=== PATIENT | female | born 1985 | race Native Hawaiian/Other Pacific Islander ===

== ENCOUNTER 2021-04-17 10:49 | Observation (INO) | payer SELFPAY ==
[~2021-04-17 10:49] MED LIST: BUPIVACAINE/PF (0.5%) 5 MG/1 ML 30 ML VIAL INFILTRATI ONE; LIDOCAINE (1%) 10 MG/1 ML VIAL 20 ML MDV INFILTRATI ONE
--- NOTE | 2021-04-17 11:17 | Emergency Department Report ---
ED Abdominal Pain HPI - General Chief Complaint: Abdominal Pain Stated Complaint: REF CT SCAN PUI?: No Time Seen by Provider: 04/17/21 11:14 Source: patient Mode of arrival: Ambulatory Limitations: No Limitations - History of Present Illness Initial Comments: 35 yo comes to ER from her PCP office (Dr Pollard- at the clinic). She presented there with abd pain. She states it started as epigastric but then was in RLQ. He sent her here to ro appendicitis. She has had the pain for 1 day. Loose stools. No fever or pain LMP 02/24 Pt is on no home meds Complaint: abdominal pain -: Gradual, days(s) Location: RLQ, epigastric Radiation: none Severity: mild Quality: cramping Consistency: intermittent Improves With: nothing Worsens With: nothing Associated Symptoms: denies other symptoms - Related Data LMP (females 10-50): 3 weeks Allergies Allergy/AdvReac Type Severity Reaction Status Date / Time No Known Allergies Allergy Unverified 09/28/13 16:05 ED Review of Systems ROS: Stated complaint: REF CT SCAN Other details as noted in HPI Comment: All other systems reviewed and negative ED Past Medical Hx - Past Medical History Previous Medical History?: Yes Hx GERD: Yes Hx Headaches / Migraines: Yes Additional medical history: adrenal insufficiency - Surgical History Past Surgical History?: Yes Additional Surgical History: x 2 - Family History Family history: no significant - Social History Smoking Status: Never Smoker Substance Use Type: None ED Physical Exam - General Limitations: No Limitations General appearance: alert, in no apparent distress - Head Head exam: Present: atraumatic, normocephalic - Eye Eye exam: Present: normal appearance - ENT ENT exam: Present: mucous membranes moist - Neck Neck exam: Present: normal inspection - Respiratory Respiratory exam: Present: normal lung sounds bilaterally. Absent: respiratory distress - Cardiovascular Cardiovascular Exam: Present: regular rate, normal rhythm. Absent: systolic murmur, diastolic murmur, rubs, gallop - GI/Abdominal GI/Abdominal exam: Present: soft, normal bowel sounds. Absent: distended, tenderness, guarding, rebound, rigid, diminished bowel sounds, hyperactive bowel sounds, hypoactive bowel sounds, organomegaly, mass, bruit, pulsatile mass, hernia - Rectal Rectal exam: Present: deferred - Extremities Exam Extremities exam: Present: normal inspection - Back Exam Back exam: Present: normal inspection - Neurological Exam Neurological exam: Present: alert, oriented X3 - Psychiatric Psychiatric exam: Present: normal affect, normal mood - Skin Skin exam: Present: warm, dry, intact, normal color. Absent: rash ED Course Vital Signs 04/17/21 11:08 Temperature 98.2 F Pulse Rate 92 H Respiratory 16 Rate Blood Pressure 123/82 [Left] O2 Sat by Pulse 98 Oximetry - Reevaluation(s) Reevaluation #1: 04/17/21 14:04 surgery paged pt updated npo Reevaluation #2: 04/17/21 14:21 Dr Faria updated Charge Nurse aware- pt to go to room 20. Curtis aware and will place on monitor Reevaluation #3: 04/17/21 14:50 Dr Barerra has seen pt Dr Faria updated on pt preop status ED Medical Decision Making - Lab Data Result diagrams: 04/17/21 11:27 04/17/21 11:27 - Radiology Data Radiology results: report reviewed, image reviewed see report - Medical Decision Making Lab Results 04/17/21 04/17/21 04/17/21 Range/Units 11:27 11:27 11:27 WBC 8.7 (4.5-11.0) K/mm3 RBC 4.12 (3.65-5.03) M/mm3 Hgb 12.4 (10.1-14.3) gm/dl Hct 36.8 (30.3-42.9) % MCV 89 (79-97) fl MCH 30 (28-32) pg MCHC 34 (30-34) % RDW 14.1 (13.2-15.2) % Plt Count 274 (140-440) K/mm3 Lymph % (Auto) 31.9 (13.4-35.0) % [place] % (Auto) 4.6 (0.0-7.3) % Eos % (Auto) 0.3 (0.0-4.3) % Baso % (Auto) 0.3 (0.0-1.8) % Lymph # (Auto) 2.8 (1.2-5.4) K/mm3 [place] # (Auto) 0.4 (0.0-0.8) K/mm3 Eos # (Auto) 0.0 (0.0-0.4) K/mm3 Baso # (Auto) 0.0 (0.0-0.1) K/mm3 Seg Neutrophils % 62.9 (40.0-70.0) % Seg Neutrophils # 5.5 (1.8-7.7) K/mm3 Sodium 139 (137-145) mmol/L Potassium 3.9 (3.6-5.0) mmol/L Chloride 104.3 (98-107) mmol/L Carbon Dioxide 21 L (22-30) mmol/L Anion Gap 18 mmol/L BUN 10 (7-17) mg/dL Creatinine 0.5 L (0.6-1.2) mg/dL Estimated GFR > 60 ml/min BUN/Creatinine Ratio 20 % Glucose 82 (65-100) mg/dL Calcium 9.4 (8.4-10.2) mg/dL Total Bilirubin 0.60 (0.1-1.2) mg/dL Direct Bilirubin < 0.2 (0-0.2) mg/dL Indirect Bilirubin 0.4 mg/dL AST 12 (5-40) units/L ALT 10 (7-56) units/L Alkaline Phosphatase 87 (35-129) units/L Total Protein 7.6 (6.3-8.2) g/dL Albumin 4.2 (3.9-5) g/dL Albumin/Globulin Ratio 1.2 % Lipase 17 (13-60) units/L HCG, Qual Negative (Negative) Urine Color (Yellow) Urine Turbidity (Clear) Urine pH (5.0-7.0) Ur Specific [place] (1.003-1.030) Urine Protein (Negative) mg/dL Urine Glucose (UA) (Negative) mg/dL Urine Ketones (Negative) mg/dL Urine Blood (Negative) Urine Nitrite (Negative) Urine Bilirubin (Negative) Urine Urobilinogen (<2.0) mg/dL Ur Leukocyte Esterase (Negative) Urine WBC (Auto) (0.0-6.0) /HPF Urine RBC (Auto) (0.0-6.0) /HPF U Epithel Cells (Auto) (0-13.0) /HPF 04/17/21 Range/Units Unknown WBC (4.5-11.0) K/mm3 RBC (3.65-5.03) M/mm3 Hgb (10.1-14.3) gm/dl Hct (30.3-42.9) % MCV (79-97) fl MCH (28-32) pg MCHC (30-34) % RDW (13.2-15.2) % Plt Count (140-440) K/mm3 Lymph % (Auto) (13.4-35.0) % [place] % (Auto) (0.0-7.3) % Eos % (Auto) (0.0-4.3) % Baso % (Auto) (0.0-1.8) % Lymph # (Auto) (1.2-5.4) K/mm3 [place] # (Auto) (0.0-0.8) K/mm3 Eos # (Auto) (0.0-0.4) K/mm3 Baso # (Auto) (0.0-0.1) K/mm3 Seg Neutrophils % (40.0-70.0) % Seg Neutrophils # (1.8-7.7) K/mm3 Sodium (137-145) mmol/L Potassium (3.6-5.0) mmol/L Chloride (98-107) mmol/L Carbon Dioxide (22-30) mmol/L Anion Gap mmol/L BUN (7-17) mg/dL Creatinine (0.6-1.2) mg/dL Estimated GFR ml/min BUN/Creatinine Ratio % Glucose (65-100) mg/dL Calcium (8.4-10.2) mg/dL Total Bilirubin (0.1-1.2) mg/dL Direct Bilirubin (0-0.2) mg/dL Indirect Bilirubin mg/dL AST (5-40) units/L ALT (7-56) units/L Alkaline Phosphatase (35-129) units/L Total Protein (6.3-8.2) g/dL Albumin (3.9-5) g/dL Albumin/Globulin Ratio % Lipase (13-60) units/L HCG, Qual (Negative) Urine Color Yellow (Yellow) Urine Turbidity Slightly-cloudy (Clear) Urine pH 6.0 (5.0-7.0) Ur Specific [place] 1.017 (1.003-1.030) Urine Protein <15 mg/dl (Negative) mg/dL Urine Glucose (UA) Neg (Negative) mg/dL Urine Ketones Tr (Negative) mg/dL Urine Blood Lg (Negative) Urine Nitrite Neg (Negative) Urine Bilirubin Neg (Negative) Urine Urobilinogen < 2.0 (<2.0) mg/dL Ur Leukocyte Esterase Neg (Negative) Urine WBC (Auto) < 1.0 (0.0-6.0) /HPF Urine RBC (Auto) < 1.0 (0.0-6.0) /HPF U Epithel Cells (Auto) < 1.0 (0-13.0) /HPF Vital Signs 04/17/21 11:08 Temperature 98.2 F Pulse Rate 92 H Respiratory 16 Rate Blood Pressure 123/82 [Left] O2 Sat by Pulse 98 Oximetry labs noted ua noted CT noted 1400 [address] Barrera consulted NPO for OR tonight Pt updated WBC normal no fever on reexam endorsing RLQ pain additional orders placed including antibiotics. To MAIN ER room 10 - pending operative plan - Differential Diagnosis RO K STONE/UTI/APPENDICITIS/CHOLEYSYS Critical care attestation.: If time is entered above; I have spent that time in minutes in the direct care of this critically ill patient, excluding procedure time. ED Disposition Clinical Impression: Abdominal pain Qualifiers: Abdominal location: generalized Qualified Code(s): R10.84 - Generalized abdominal pain Appendicitis Qualifiers: Appendicitis type: acute appendicitis Disposition: 02 [facility]ORT [facility]M [facility] Is pt being admited?: Yes Does the pt Need Aspirin: No Condition: Stable Instructions: Abdominal Pain (ED) Referrals: LO HARRIS MD [Staff Physician] - 3-5 Days IVONNE BARRERA MD [Staff Physician] - 3-5 Days Time of Disposition: 13:54
[2021-04-17 12:07] LABS: Basophils % (Auto) 0.3 % (0.0-1.8); Eosinophils % (Auto) 0.3 % (0.0-4.3); Hematocrit 36.8 % (30.3-42.9); Hemoglobin 12.4 gm/dl (10.1-14.3); Lymphocytes # (Auto) 2.8 K/mm3 (1.2-5.4); Lymphocytes % (Auto) 31.9 % (13.4-35.0); Mean Corpuscular HGB Conc 34 % (30-34); Mean Corpuscular Volume 89 fl (79-97); Monocytes # (Auto) 0.4 K/mm3 (0.0-0.8); Monocytes % (Auto) 4.6 % (0.0-7.3); Platelet Count 274 K/mm3 (140-440); Red Blood Count 4.12 M/mm3 (3.65-5.03); Red Cell Distribution Width 14.1 % (13.2-15.2)
[2021-04-17 12:10] LABS: Bilirubin,Urine NEG (Negative); Blood,Urine LG (Negative); Color,Urine Yellow (Yellow); Protein,Urine <15 mg/dL mg/dL (Negative); Urobilinogen,Urine < 2.0 mg/dL (<2.0)
[2021-04-17 12:14] LABS: RBC,Urine < 1.0 /HPF (0.0-6.0); WBC,Urine < 1.0 /HPF (0.0-6.0)
[2021-04-17 12:33] LABS: Alanine Aminotransferase 10 units/L (7-56); Albumin 4.2 g/dL (3.9-5); Blood Urea Nitrogen 10 mg/dL (7-17); Calcium 9.4 mg/dL (8.4-10.2); Hemolysis Index 0
[2021-04-17 12:41] LABS: BUN/Creatinine Ratio 20
[2021-04-17 12:42] LABS: Bilirubin,Direct < 0.2 mg/dL (0-0.2)
--- NOTE | 2021-04-17 13:54 | Cat Scan Report ---
CT OF THE ABDOMEN AND PELVIS WITHOUT CONTRAST INDICATION / CLINICAL INFORMATION: Abdominal pain. TECHNIQUE: All CT scans at this location are performed using CT dose reduction for ALARA by means of automated exposure control. COMPARISON: None available. FINDINGS: ABDOMEN: The liver, spleen, gallbladder, bile ducts, pancreas, adrenal glands and kidneys demonstrate no significant abnormality. I see no evidence of bowel obstruction or free air. No adenopathy is pre sent. The lung bases are unremarkable. PELVIS: The appendix is dilated and thick-walled, measuring approximately 1 cm transverse. There is m inimal increased density of the periappendiceal fat. I do not identify a calcified fecalith. There is no evidence of abscess. A small amount of free fluid in the cul-de-sac is nonspecific. The uterus and adnexal regions are unr emarkable. There is no evidence of diverticulitis. I do not identify a hernia. No acute osseous abnor mality is seen. IMPRESSION: Acute, uncomplicated appendicitis. Signer Name: Ant Garay MD Signed: 04/17/2021 1:50 PM Workstation Name: [employer]
[2021-04-17] MEDS ORDERED: CEFEPIME/NS 2 GM/100 ML 2 GM/100 ML BAG IV ONE (14:12)
[2021-04-17] MEDS ORDERED: SODIUM CHLORIDE 0.9% 1000 ML 1,000 ML IV ONE (14:28)
[2021-04-17] MEDS ORDERED: MORPHINE 4 MG/1 ML INJ IV ONE (14:48)
[2021-04-17] MEDS ORDERED: ONDANSETRON 4 MG/2 ML INJ IV ONE (14:48)
[2021-04-17] MEDS ORDERED: SCOPOLAMINE TRANSDERMAL PATCH 72 HR TD ONE (15:00)
--- NOTE | 2021-04-17 15:26 | Anesthesia Consultation ---
<GINNY MCNAMARA - Last Filed: 04/17/21 15:26> Anesthesia Consult and Med Hx Date of service: 04/17/21 - Airway Anesthetic Teeth Evaluation: Good ROM Head & Neck: Adequate Mental/Hyoid Distance: Adequate Mallampati Class: Class II Intubation Access Assessment: Probably Good - Pre-Operative Health Status ASA Pre-Surgery Classification: ASA1 Proposed Anesthetic Plan: General - Additional Comments Anesthesia Medical History Comments: acute appendicitis <EVA VALDEZ - Last Filed: 04/17/21 17:11> Anesthesia Consult and Med Hx - Pre-Operative Health Status ASA Pre-Surgery Classification: ASA2 - Pulmonary Hx Smoking: No - Cardiovascular System Hx Hypertension: No - Central Nervous System Hx Neuromuscular Disorder: No (hx pituitary tumor stable since 2013; no meds) - Endocrine Hx Renal Disease: No Hx Liver Disease: No Hx Insulin Dependent Diabetes: No - Other Systems Hx Obesity: No
--- NOTE | 2021-04-17 15:27 | Anesthesia Day of Surgery ---
Anesthesia Day of Surgery - Day of Surgery Patient Examined: Yes Patient H&P Reviewed: Yes Patient is NPO: Yes
--- NOTE | 2021-04-17 15:27 | Consultation ---
History of Present Illness Consult date: 04/17/21 Reason for consult: abdominal pain - History of present illness History of present illness: General surgery called for evaluation of a 35-year-old female who presented from an outpatient clinic for abdominal pain. She says the pain started a day and was more in the epigastric area and is now radiated to the right lower quadrant. No aggravating or alleviating factors. Patient had a CT scan that showed inflammation of the appendix consistent with acute appendicitis. Pt says that she believes she had uncomplicated appendicitis several years ago that was treated with abx. Past History Past Medical History: other (headaches, adrenal insufficiency) Past Surgical History: Social history: no significant social history Medications and Allergies Allergies Allergy/AdvReac Type Severity Reaction Status Date / Time No Known Allergies Allergy Unverified 09/28/13 16:05 Active Meds: Active Medications Sodium Chloride (Nacl 0.9% 1000 Ml) 1,000 mls @ 75 mls/hr IV ONCE ONE Stop: 04/18/21 03:47 Last Admin: 04/17/21 14:57 Dose: 75 mls/hr Review of Systems All systems: negative - Constitutional no fever, no chills - Gastrointestinal abdominal pain, diarrhea, no nausea, no vomiting Exam Vital Signs Temp Pulse Resp BP Pulse Ox 98.2 F 92 H 16 123/82 98 04/17/21 11:08 04/17/21 11:08 04/17/21 11:08 04/17/21 11:08 04/17/21 11:08 - General physical appearance Positive: well developed, no distress, moderate pain - Respiratory Positive: normal expansion, normal respiratory effort - Cardiovascular Heart Sounds: Present: S1 & S2 - Extremities Extremities: no ischemia - Abdomen Abdomen: Present: soft, other (tender to palpation RLQ). Absent: guarding, rigid Results - Labs 04/17/21 11:27 04/17/21 11:27 Abnormal lab results 04/17/21 Range/Units 11:27 Carbon Dioxide 21 L (22-30) mmol/L Creatinine 0.5 L (0.6-1.2) mg/dL Diabetes panel 04/17/21 Range/Units 11:27 Sodium 139 (137-145) mmol/L Potassium 3.9 (3.6-5.0) mmol/L Chloride 104.3 (98-107) mmol/L Carbon Dioxide 21 L (22-30) mmol/L BUN 10 (7-17) mg/dL Creatinine 0.5 L (0.6-1.2) mg/dL Glucose 82 (65-100) mg/dL Calcium 9.4 (8.4-10.2) mg/dL AST 12 (5-40) units/L ALT 10 (7-56) units/L Alkaline Phosphatase 87 (35-129) units/L Total Protein 7.6 (6.3-8.2) g/dL Albumin 4.2 (3.9-5) g/dL Calcium panel 04/17/21 Range/Units 11:27 Calcium 9.4 (8.4-10.2) mg/dL Albumin 4.2 (3.9-5) g/dL Pituitary panel 04/17/21 Range/Units 11:27 Sodium 139 (137-145) mmol/L Potassium 3.9 (3.6-5.0) mmol/L Chloride 104.3 (98-107) mmol/L Carbon Dioxide 21 L (22-30) mmol/L BUN 10 (7-17) mg/dL Creatinine 0.5 L (0.6-1.2) mg/dL Glucose 82 (65-100) mg/dL Calcium 9.4 (8.4-10.2) mg/dL Adrenal panel 04/17/21 Range/Units 11:27 Sodium 139 (137-145) mmol/L Potassium 3.9 (3.6-5.0) mmol/L Chloride 104.3 (98-107) mmol/L Carbon Dioxide 21 L (22-30) mmol/L BUN 10 (7-17) mg/dL Creatinine 0.5 L (0.6-1.2) mg/dL Glucose 82 (65-100) mg/dL Calcium 9.4 (8.4-10.2) mg/dL Total Bilirubin 0.60 (0.1-1.2) mg/dL AST 12 (5-40) units/L ALT 10 (7-56) units/L Alkaline Phosphatase 87 (35-129) units/L Total Protein 7.6 (6.3-8.2) g/dL Albumin 4.2 (3.9-5) g/dL - Imaging CT scan - abdomen: report reviewed, image reviewed CT scan - pelvis: report reviewed (inflammed appendix with no free air, fluid, or signs of abscess or perforation), image reviewed Assessment and Plan 35 year old female with acute appendicitis. Afebrile and stable. Pathology, prognosis and treatment options discussed with patient who expressed understanding. Pt signed informed consent for lap appendectomy. Pt scheduled for today.
[2021-04-17] MEDS ORDERED: LIDOCAINE MPF (2%) 20 MG/1 ML VIAL 5 ML ONE (15:30)
[2021-04-17] MEDS ORDERED: propofoL 200 MG/20 ML VIAL IV ONE (15:30)
[2021-04-17] MEDS ORDERED: ROCURONIUM 50 MG/5 ML INJ IV ONE (15:30)
[2021-04-17] MEDS ORDERED: HYDROmorphone 1 MG/1 ML INJ ONE (15:30)
[2021-04-17] MEDS ORDERED: SUCCINYLCHOLINE CHLORIDE 200 MG/10 ML INJ MDV ONE (15:31)
[2021-04-17] MEDS ORDERED: LIDOCAINE (1%) 10 MG/1 ML VIAL 20 ML MDV ONE (16:03)
[2021-04-17] MEDS ORDERED: BUPIVACAINE/PF (0.5%) 5 MG/1 ML 30 ML VIAL INFILTRATI ONE ×2 (16:03→17:41)
[2021-04-17] MEDS ORDERED: MIDAZOLAM 2 MG/2 ML INJ ONE (16:42)
[2021-04-17] MEDS ORDERED: ONDANSETRON 4 MG/2 ML INJ IV PRN ×2 (17:11→18:07)
[2021-04-17] MEDS ORDERED: LIDOCAINE (1%) 10 MG/1 ML VIAL 20 ML MDV INFILTRATI ONE (17:41)
[2021-04-17] MEDS ORDERED: NEOSTIGMINE 10MG/10 ML INJ MDV ONE (17:45)
[2021-04-17] MEDS ORDERED: ONDANSETRON 4 MG/2 ML INJ ONE (17:45)
[2021-04-17] MEDS ORDERED: GLYCOPYRROLATE 0.4 MG/2 ML INJ ONE (17:45)
[2021-04-17] MEDS ORDERED: LACTATED RINGERS 1,000 ML ONE (17:50)
[2021-04-17] MEDS ORDERED: HYDROmorphone 1 MG/1 ML INJ IV PRN (18:07)
[2021-04-17] MEDS ORDERED: ALBUTEROL 2.5 MG/3 ML NEBU IH PRN (18:07)
[2021-04-17] MEDS ORDERED: oxyCODONE /ACETAMINOPHEN 5-325MG TAB PO PRN ×2 (18:07→19:45)
[2021-04-17] MEDS ORDERED: ACETAMINOPHEN 325 MG TAB PO PRN (18:07)
[2021-04-17] MEDS: HYDROmorphone 1 MG/1 ML INJ IV PRN ×2 (18:10→18:20)
--- NOTE | 2021-04-17 18:14 | Operative Report ---
Operative Report Operative Report: Date of Service: 04/17/2021 Primary Surgeon: Linda Barrera MD Procedure: Laparoscopic Appendectomy Anesthesia: GETA Pre-Operative Diagnosis: acute appendicitis Post-Operative Diagnosis: Same Indications for Procedure: 35-year-old female with a 1 day history of worsening abdominal pain. CT scan showed acute appendicitis. Patient signed informed consent expressed understanding risk and benefits. Description of Procedure(s): The patient was brought to the operating room and underwent general anesthesia after lower extremity SCD were placed. A anderson catheter was inserted under sterile conditions and the left arm was tucked gently at their side. The abdomen was prepped and draped in the standard fashion. IV antibiotics were given and a time out was performed. Using a veress needle via a stab incision in the umbilicus, the abdomen was insuflated to a pressure of 15mmHg. Using optivew technique, a 5mm trocar was placed just superior and to the left of the umbilicus. There was no gross injury noted to any intra-abdominal structures. After which working trocars were placed under direct visualization. A 12 mm trocar was placed in left mid abdomen, and a 5 mm trocar was inserted in the suprapubic area. The patient was placed in slight Trendelenburg position and tilted towards her left side. The cecum was identified and mobilized, as well as the terminal ileum. There was no gross purulent fluid. The mesoappendix was transected with the Harmonic scalpel. The appendix was then taken at its base with a white load on a laparoscopic stapler. The staple line was inspected and found to be hemostatically sound and secure after 2 clips were placed along the staple line. There was a generalized oozing at the patient had an all incisions including the base of the appendix. Powdered Surgicel was placed this area. The appendix was placed in Endo Catch bag. It was then retrieved via the 12 mm trocar. The fascia was then closed using a O-vicryl and a suture passer device. Trocars removed under direct visualization. The insufflation was then terminated. The skin incisions were closed using 4-0 Monocryl sutures. All the wounds dressed with dermabond. The patient tolerated the procedure well, was extubated and taken to the recovery room in satisfactory condition. 1% lidocaine was used at all incisions for local anesthetic. Specimen: appendix Complications: none immediate EBl: minimal Findings: Generalized inflammation of the appendix and the tip to the base. No signs of perforation.
[2021-04-17] MEDS ORDERED: SODIUM CHLORIDE 0.9% 1000 ML 1,000 ML IV SCH (18:15)
[2021-04-17] MEDS ORDERED: diphenhydrAMINE 50 MG/ML VIAL ONE (18:21)
--- NOTE | 2021-04-17 18:22 | History and Physical Report ---
History of Present Illness Chief complaint: My stomach is hurting History of present illness: 35 YO Female with Migraine BERRIOS, GERD presents to ED for evaluation. Patient reports "my stomach hurts". Patient states that she has experienced abdominal pain for the past day with persistent symptoms over the same timeframe. Patient was seen and evaluated by her primary care physician and was instructed to seek further care at [facility]. Patient transported to [facility] via private vehicle for further care and evaluation of the aforementioned symptoms. The patient was seen and evaluated in the emergency department. All lab and imaging studies reviewed. Patient with CT scan of the abdomen and pelvis which revealed acute appendicitis. Surgical team consulted in ED. Patient taken to the operating room for surgical intervention. Patient denies fever, chills, chest pain, palpitation, productive cough, skin rash or recent contact, known exposure to COVID-19. No prior admission for review. No medication listed at time of admission for reconciliation. Past History Past Medical History: other (headaches, adrenal insufficiency) Past Surgical History: Social history: , lives with family. denies: smoking, alcohol abuse Family history: no significant family history, other (Reviewed) Medications and Allergies Allergies Allergy/AdvReac Type Severity Reaction Status Date / Time No Known Allergies Allergy Unverified 09/28/13 16:05 Active Meds: Active Medications Acetaminophen (Acetaminophen 325 Mg Tab) 650 mg PO Q4H PRN PRN Reason: Pain MILD(1-3)/Fever >100.5/BERRIOS Albuterol (Albuterol 2.5 Mg/3 Ml Nebu) 2.5 mg IH Q4HRT PRN PRN Reason: Shortness Of Breath Hydromorphone HCl (Hydromorphone 1 Mg/1 Ml Inj) 0.5 mg IV Q10MIN PRN PRN Reason: Pain , Severe (7-10) Hydromorphone HCl (Hydromorphone 1 Mg/1 Ml Inj) 0.5 mg IV Q23H PRN PRN Reason: Pain , Severe (7-10) Sodium Chloride (Nacl 0.9% 1000 Ml) 1,000 mls @ 75 mls/hr IV ONCE ONE Stop: 04/18/21 03:47 Last Admin: 04/17/21 14:57 Dose: 75 mls/hr Sodium Chloride (Nacl 0.9% 1000 Ml) 1,000 mls @ 100 mls/hr IV DIRECT PATRICIA Ondansetron HCl (Ondansetron 4 Mg/2 Ml Inj) 4 mg IV ONCE PRN PRN Reason: Nausea And Vomiting Ondansetron HCl (Ondansetron 4 Mg/2 Ml Inj) 4 mg IV Q8H PRN PRN Reason: Nausea And Vomiting Oxycodone/Acetaminophen (Oxycodone /Acetaminophen 5-325mg Tab) 1 tab PO Q16H PRN PRN Reason: Pain, Moderate (4-6) Sodium Chloride (Sodium Chloride 0.9% 10 Ml Flush Syringe) 10 ml IV BID PATRICIA Sodium Chloride (Sodium Chloride 0.9% 10 Ml Flush Syringe) 10 ml IV PRN PRN PRN Reason: LINE FLUSH Review of Systems Constitutional: no weight loss, no weight gain, no chills Ears, nose, mouth and throat: no ear pain, no tinnitis, no nose pain, no nasal congestion Breasts: no change in shape, no swelling Cardiovascular: no chest pain, no orthopnea, no palpitations, no edema Respiratory: no cough, no cough with sputum, no shortness of breath Gastrointestinal: abdominal pain, no nausea, no diarrhea, no change in bowel habits Genitourinary Female: no pelvic pain, no flank pain, no dysuria, no urinary frequency, no urgency Rectal: no pain, no incontinence, no bleeding Musculoskeletal: no neck stiffness, no shooting arm pain, no low back pain, no shooting leg pain Integumentary: no rash, no pruritis, no sores, no wounds, no jaundice Neurological: no head injury, no weakness, no tingling, no seizures, no syncope Psychiatric: no anxiety, no hypersomnia, no change in appetite, no suicidal ideation Endocrine: no cold intolerance, no heat intolerance, no polydipsia, no polyuria Hematologic/Lymphatic: no easy bruising, no easy bleeding Allergic/Immunologic: no urticaria, no wheezing Exam - Constitutional Vitals: Temp Pulse Resp BP Pulse Ox 98.2 F 92 H 16 123/82 98 04/17/21 11:08 04/17/21 11:08 04/17/21 11:08 04/17/21 11:08 04/17/21 11:08 General appearance: Present: mild distress - EENT Eyes: Present: PERRL ENT: hearing intact, clear oral mucosa - Neck Neck: Present: supple, normal ROM - Respiratory Respiratory effort: normal Respiratory: bilateral: CTA - Cardiovascular Heart Sounds: Present: S1 & S2. Absent: rub, click - Extremities Extremities: pulses symmetrical, No edema Peripheral Pulses: within normal limits - Abdominal General gastrointestinal: Present: soft, tender, non-distended, normal bowel sounds Localized gastrointestinal: tender: RLQ Female genitourinary: Present: normal - Integumentary Integumentary: Present: clear, warm, dry - Musculoskeletal Musculoskeletal: gait normal, strength equal bilaterally - Psychiatric Psychiatric: appropriate mood/affect, intact judgment & insight - Neurologic Neurologic: CNII-XII intact, moves all extremities Results - Labs CBC & Chem 7: 04/17/21 11:27 04/17/21 11:27 Labs: Abnormal lab results 04/17/21 Range/Units 11:27 Carbon Dioxide 21 L (22-30) mmol/L Creatinine 0.5 L (0.6-1.2) mg/dL Assessment and Plan - Patient Problems (1) Acute appendicitis Current Visit: Yes Status: Acute Plan to address problem: CT scan abdomen pelvis, bowel rest, IV fluid resuscitation therapy, surgical team consulted in ED. Patient pending surgical intervention Serial abdominal e xam. Pain control. (2) Abdominal pain Current Visit: Yes Status: Acute Qualifiers: Abdominal location: generalized Qualified Code(s): R10.84 - Generalized abdominal pain Plan to address problem: Serial abdominal exam, pain control. Surgery team consulted. Patient pending surgical intervention. (3) DVT prophylaxis Current Visit: Yes Status: Acute Plan to address problem: SCD to bilateral lower extremities while in bed, early ambulation. (4) Advance care planning Current Visit: Yes Status: Acute Plan to address problem: Disease education done, care plan discussed, diagnoses discussed, prognosis discussed, patient knowledges understanding and agreement with care plan, +30 minutes.
[2021-04-17] MEDS ORDERED: diphenhydrAMINE 50 MG/ML VIAL IV PRN (18:23)
--- NOTE | 2021-04-17 18:45 | Post Anesthesia Evaluation ---
- Post Anesthesia Evaluation Patient Participated: Yes Airway Patent: Yes Stable Respiratory Function: Yes Nausea/Vomiting: No Temp > 96.8F: Yes Pain Manageable: Yes Adequeate Hydration: Yes Anesthesia Complications: No
[2021-04-17] MEDS ORDERED: LACTATED RINGERS 1,000 ML IV SCH (19:45)
[2021-04-17] MEDS ORDERED: MORPHINE 2 MG/1 ML INJ IV PRN (19:45)
[2021-04-17] MEDS: KETOROLAC 30 MG/1 ML INJ IV SCH (22:06)
[2021-04-18] MEDS: KETOROLAC 30 MG/1 ML INJ IV SCH ×3 (01:50→11:29)
[2021-04-18 05:02] VITALS: BP 114/65
[2021-04-18 05:11] LABS: Basophils % (Auto) 0.4 % (0.0-1.8); Eosinophils % (Auto) 0.1 % (0.0-4.3); Hematocrit 36.6 % (30.3-42.9); Hemoglobin 12.3 gm/dl (10.1-14.3); Lymphocytes # (Auto) 1.1 K/mm3 (1.2-5.4); Lymphocytes % (Auto) 10.2 % (13.4-35.0); Mean Corpuscular HGB Conc 34 % (30-34); Mean Corpuscular Volume 91 fl (79-97); Monocytes # (Auto) 0.2 K/mm3 (0.0-0.8); Monocytes % (Auto) 2.4 % (0.0-7.3); Platelet Count 277 K/mm3 (140-440); Red Blood Count 4.05 M/mm3 (3.65-5.03); Red Cell Distribution Width 14.1 % (13.2-15.2)
[2021-04-18 05:29] LABS: Alanine Aminotransferase 10 units/L (7-56); Albumin 3.9 g/dL (3.9-5); Blood Urea Nitrogen 10 mg/dL (7-17); Calcium 8.7 mg/dL (8.4-10.2); Hemolysis Index 31
[2021-04-18 05:33] LABS: BUN/Creatinine Ratio 20
--- NOTE | 2021-04-18 09:52 | Progress Note ---
Assessment and Plan Postop day #1 status post laparoscopic appendectomy for acute appendicitis. Patient is afebrile and stable. Laboratory values are within settable limits. From a general surgery perspective patient okay to discharge today. Patient can advance diet activity as tolerated. Patient to call my office to make an appointment in 2 weeks.[phone] Subjective Date of service: 04/18/21 Narrative: No acute events overnight. Patient says she feels much better compared to prior to surgery. She has expected pain on the left side where there is a transmuscular stitch. She tolerated clear liquid without difficulty and is ambulating well. Objective Vital Signs - 12hr 04/17/21 04/17/21 04/17/21 21:57 22:00 22:06 Temperature 98.6 F Pulse Rate 104 H Respiratory 18 18 Rate Blood Pressure 99/62 O2 Sat by Pulse 98 100 Oximetry 04/17/21 04/17/21 04/17/21 22:07 22:36 22:37 Temperature Pulse Rate Respiratory 18 18 18 Rate Blood Pressure O2 Sat by Pulse Oximetry 04/18/21 04/18/21 04/18/21 01:50 02:20 05:01 Temperature 98.1 F Pulse Rate 98 H Respiratory 18 18 18 Rate Blood Pressure 114/65 O2 Sat by Pulse 97 Oximetry 04/18/21 06:17 Temperature Pulse Rate Respiratory 18 Rate Blood Pressure O2 Sat by Pulse Oximetry - General physical appearance well developed, no distress, no pain - Eyes PERRL, normal occular movement - Respiratory normal expansion, normal respiratory effort - Abdomen soft, other (Incisions clean dry and intact, appropriate tender to palpation) - Labs 04/18/21 04:49 04/18/21 04:49 Diabetes panel 04/17/21 04/18/21 Range/Units 11:27 04:49 Sodium 139 133 L (137-145) mmol/L Potassium 3.9 4.0 (3.6-5.0) mmol/L Chloride 104.3 102.9 (98-107) mmol/L Carbon Dioxide 21 L 18 L (22-30) mmol/L BUN 10 10 (7-17) mg/dL Creatinine 0.5 L 0.5 L (0.6-1.2) mg/dL Glucose 82 120 H (65-100) mg/dL Calcium 9.4 8.7 (8.4-10.2) mg/dL AST 12 16 (5-40) units/L ALT 10 10 (7-56) units/L Alkaline Phosphatase 87 86 (35-129) units/L Total Protein 7.6 7.3 (6.3-8.2) g/dL Albumin 4.2 3.9 (3.9-5) g/dL Calcium panel 04/17/21 04/18/21 Range/Units 11:27 04:49 Calcium 9.4 8.7 (8.4-10.2) mg/dL Albumin 4.2 3.9 (3.9-5) g/dL Pituitary panel 04/17/21 04/18/21 Range/Units 11:27 04:49 Sodium 139 133 L (137-145) mmol/L Potassium 3.9 4.0 (3.6-5.0) mmol/L Chloride 104.3 102.9 (98-107) mmol/L Carbon Dioxide 21 L 18 L (22-30) mmol/L BUN 10 10 (7-17) mg/dL Creatinine 0.5 L 0.5 L (0.6-1.2) mg/dL Glucose 82 120 H (65-100) mg/dL Calcium 9.4 8.7 (8.4-10.2) mg/dL Adrenal panel 04/17/21 04/18/21 Range/Units 11:27 04:49 Sodium 139 133 L (137-145) mmol/L Potassium 3.9 4.0 (3.6-5.0) mmol/L Chloride 104.3 102.9 (98-107) mmol/L Carbon Dioxide 21 L 18 L (22-30) mmol/L BUN 10 10 (7-17) mg/dL Creatinine 0.5 L 0.5 L (0.6-1.2) mg/dL Glucose 82 120 H (65-100) mg/dL Calcium 9.4 8.7 (8.4-10.2) mg/dL Total Bilirubin 0.60 0.60 (0.1-1.2) mg/dL AST 12 16 (5-40) units/L ALT 10 10 (7-56) units/L Alkaline Phosphatase 87 86 (35-129) units/L Total Protein 7.6 7.3 (6.3-8.2) g/dL Albumin 4.2 3.9 (3.9-5) g/dL
--- NOTE | 2021-04-18 10:17 | Discharge Summary ---
Providers - Providers Date of Admission: 04/17/21 18:07 Date of discharge: 04/18/21 Attending physician: CATHERINE SILVER Primary care physician: NURSING ATTENDANT Hospitalization Reason for admission: abd pain Condition: Stable Hospital course: 35-year-old female who presented from an outpatient clinic for abdominal pain. The pain started the day of admission and was located in the epigastric area and radiated to the right lower quadrant. No aggravating or alleviating factors. Patient had a CT scan that showed inflammation of the appendix consistent with acute appendicitis. Pt stated that she believes she had uncomplicated appendicitis several years ago that was treated with abx. Patient was admitted and started on IV antibiotics and seen by general surgeon consultation. The patient underwent laparoscopic appendectomy without complications. Postoperatively, patient was noted be afebrile with laboratory values in normal limits. Patient tolerated diet well. General surgery felt the patient could discharge home and advance diet and active as tolerated. Follow-up with general surgery in 2 weeks. Dedicated discharge time 35 minutes. Disposition: 01 HOME / SELF CARE / HOMELESS Final Discharge Diagnosis (Prints w/discharge instructions): Appendicitis, abdominal pain Core Measure Documentation - Palliative Care Palliative Care/ Comfort Measures: Not Applicable - Core Measures Any of the following diagnoses?: none Exam - Constitutional Vitals: Temp Pulse Resp BP Pulse Ox 98.1 F 98 H 97 H 114/65 98 04/18/21 05:01 04/18/21 05:01 04/18/21 10:00 04/18/21 05:01 04/18/21 10:00 General appearance: Present: no acute distress, well-nourished - EENT Eyes: Present: PERRL ENT: hearing intact, clear oral mucosa - Neck Neck: Present: supple, normal ROM - Respiratory Respiratory effort: normal Respiratory: bilateral: CTA - Cardiovascular Heart Sounds: Present: S1 & S2. Absent: rub, click - Extremities Extremities: pulses symmetrical, No edema Peripheral Pulses: within normal limits - Abdominal General gastrointestinal: Present: soft, non-tender, non-distended, normal bowel sounds Female genitourinary: Present: normal - Integumentary Integumentary: Present: clear, warm, dry - Musculoskeletal Musculoskeletal: gait normal, strength equal bilaterally - Psychiatric Psychiatric: appropriate mood/affect, intact judgment & insight - Neurologic Neurologic: CNII-XII intact, moves all extremities Plan Activity: advance as tolerated Weight Bearing Status: Weight Bear as Tolerated Diet: regular Wound: per your surgeon's advice Follow up with: LO HARRIS MD [Staff Physician] - 3-5 Days IVONNE BERMUDEZ MD [Staff Physician] - 3-5 Days Prescriptions: oxyCODONE /ACETAMINOPHEN [Percocet 5/325 mg] 1 tab PO Q4HR PRN #8 tablet PRN Reason: Pain, Moderate (4-6)
== END 2021-04-18 12:07 | disposition home or self-care (01) ==
LOC: ED 10:49 → 3A 18:07
PROVIDERS: ADMIT Internal Medicine; ATTEND Hospitalist
DX: K35.80 Unspecified acute appendicitis (principal); R10.84 Generalized abdominal pain; E27.40 Unspecified adrenocortical insufficiency; R51.9 Headache, unspecified; Z98.891 History of uterine scar from previous surgery; Z79.899 Other long term (current) drug therapy; Z98.890 Other specified postprocedural states
CPT/HCPCS: 36415; 44970; 74176; 80048; 80053; 80076; 81001; 82140; 83690; 84703; 85025; 86850; 86900; 86901; 87040; 88304; 96365; 96367; 96375; 96376; 99284; G0378; J0330; J0692; J1170; J1200; J1815; J1885; J1956; J2250; J2270; J2405; J2704; J2710; J3490; J7030; J7120; Q0162